=== PATIENT | male | born 2000 | race Caucasian/White ===

== ENCOUNTER 2025-07-19 21:03 | Emergency (ER) | payer OTHER, SELFPAY | END 2025-07-19 23:53 | disposition home or self-care (01) | LOC: CSHERS 21:03 | DX: S16.1XXA Strain of muscle, fascia and tendon at neck level, initial encounter (principal); S39.012A Strain of muscle, fascia and tendon of lower back, initial encounter; V89.2XXA Person injured in unspecified motor-vehicle accident, traffic, initial encounter | CPT/HCPCS: 72125; 72131 ==